=== PATIENT | male | born 1970 | race Caucasian/White ===

== ENCOUNTER 2019-05-03 03:15 | Emergency (ER) | payer BC ==
[~2019-05-03] VITALS: Ht 177.8 cm; Wt 210.1 kg
[2019-05-03 03:27] VITALS: Ht 177.8 cm; Wt 210.1 kg
[2019-05-03 08:53] VITALS: BP 147/81
== END 2019-05-03 08:53 | disposition home or self-care (01) ==
LOC: ED 03:15
DX: T88.6XXA Anaphylactic reaction due to adverse effect of correct drug or medicament properly administered, initial encounter (principal); T39.315A Adverse effect of propionic acid derivatives, initial encounter; Z88.5 Allergy status to narcotic agent; Z88.6 Allergy status to analgesic agent; Y92.89 Other specified places as the place of occurrence of the external cause
CPT/HCPCS: J0171; J2060; J2930; J3490; J7030